=== PATIENT | male | born 1955 ===

== ENCOUNTER → 2019-10-08 | Outpatient (CLI) | payer OTHER ==
[~2019-10-08] VITALS: Ht 167.6 cm; Wt 104.8 kg
[~2019-10-08] MED LIST: COZAAR 25 MG TA25 M2 PO; IBU800 MG PO; LIPITOR 20 MG T20 M1 PO
--- NOTE | ~2019-10-08 | HPC ---
[facility] [address] [address] PAIN MANAGEMENT CONSULTATION Name: FER STEVENS Room #: REG ASHLEIGH JiménezDexter#: [id number] Admission: 10/08/19 Attend Phys: Dwayne Goode MD Discharge: Date of : 57 Report #: [id number] THIS REPORT FOR: //name// CC: SARAH Goode DATE OF SERVICE: 10/08/2019 SUBJECTIVE: The patient is a very pleasant 63-year-old gentleman who presents today with severe spinal stenosis and lumbar radiculopathy. The pain has gotten so severe that it is difficult for him to stand or walk. He has pain both in his back, butt and his leg. The pain is most severe on the right. It follows an L5-S1 distribution. He had an MRI performed on 09/03/2019 and we reviewed this study. It shows an anterolisthesis of L4 on L5 causing severe neural foraminal narrowing and central stenosis. There is also spinal stenosis of a moderate degree at L3-L4. MEDICATIONS: Atorvastatin, losartan and ibuprofen. ALLERGIES: None. PAST MEDICAL HISTORY: Significant for hypertension. PAST SURGICAL HISTORY: None. SOCIAL HISTORY: Denies use of tobacco. Alcohol once or twice a week in a social setting. He denies any recreational drugs, no use of marijuana. He works as a software engineering supervisor. He was born in [place] and came to the [place] in 1970s to get his master's degree. PHYSICAL EXAMINATION: GENERAL: Pleasant gentleman who is morbidly obese. VITAL SIGNS: His blood pressure is 127/89, heart rate 97, respirations 16, O2 sat is 96. His BMI is 37.3. HEENT: Normal. NECK: Supple. CHEST: Clear to auscultation. CARDIAC: Rhythm is regular with no audible murmur. ABDOMEN: Soft. MUSCULOSKELETAL: Reveals normal alignment of the spine. His gait is mildly antalgic. Muscle mass appears to be symmetrical and equal and adequate bilaterally. He has pain with back extension, and feels comfort and relief with back flexion. He has some tenderness across his lumbosacral segment. Pain then radiates to the right, into the right L5-S1 distribution. He has some similar [facility] [address] [place] [address] PAIN MANAGEMENT CONSULTATION Name: FER STEVENS Room #: [facility].#: [id number] Admission: 10/08/19 Attend Phys: Dwayne Goode MD Discharge: Date of : 57 Report #: [id number] pain also on the left. Pain intensity is 8. Straight leg raising reproduces this pain on the right, but not the left. Deep tendon reflexes are diminished bilaterally at the knees and ankle. Sensation is intact to light touch. IMPRESSION: Severe cervical stenosis with radiculopathy. Anterolisthesis, L4 on L5. Neural foraminal narrowing. Lumbar radiculopathy. RECOMMENDATIONS: L4-L5 epidural injection under fluoroscopic guidance. The procedure was explained in some detail. I have also discussed the importance of physical therapy and I have referred him to [facility] on [address] for 6 visits. Hopefully, the pain relief that he achieves from the injection will be helpful in allowing to participate more actively in physical therapy. DESCRIPTION OF PROCEDURE: He was taken to the fluoroscopic suite, placed prone. The skin was prepped with ChloraPrep. Skin was anesthetized over the L4-L5 interspace to the right of midline. A 20-gauge Tuohy epidural needle was advanced on the first attempt in the epidural space with loss of resistance. There was no blood nor CSF aspirated. A 1 mL of Omnipaque was injected with good spread of dye observed in the epidural space. This was then followed by 3 mL of 0.5% lidocaine mixed with 80 mg of triamcinolone. He tolerated the procedure well, was observed for 45 minutes and discharged. Follow up as needed. By: [id number] Dwayne Goode MD /nt
[2019-10-08 10:16] VITALS: BP 127/89
--- NOTE | 2019-10-08 11:11 | NUR ---
Pain Clinic Assessment: 1. History of Osteoarthritis: * NONE History of Rheumatoid Arthritis: Not Applicable 2. Height: 5 ft. 6 in. 167.6 cm. Weight: 231.0 lb. oz. 104.781 kg. Patient's BMI: 37.3 3. Vital Signs: BP: 127/89 Pulse: 97 Resp: 16 Temp: 02 Sat: 96 ECG Mon: 4. Pain Intensity: 8 5. Fall Risk: Dizziness: N Needs help standing or walking: N Fallen in the last 3 months: N Fall risk comments: 6. Patient on Blood Thinner: None 7. History of Hypertension: Y 8. Opioid Therapy greater than 6 weeks: N Opiate Contract Signed: 9. Risk Assessment Tool Provided: 10. Functional Assessment Tool: 11. Recreational Drug Use: Never Drug Type: Tobacco Use: Never Smoker Tobacco Type: Amount or Packs/day: How Many Years: Alcohol Use: Yes Frequency: Weekly Quant: 1-2/WEEK
--- NOTE | 2019-10-08 12:10 | NUR ---
Pain Clinic Assessment: 1. History of Osteoarthritis: * NONE History of Rheumatoid Arthritis: Not Applicable 2. Height: 5 ft. 6 in. 167.6 cm. Weight: 231.0 lb. oz. 104.781 kg. Patient's BMI: 37.3 3. Vital Signs: BP: 127/89 Pulse: 97 Resp: 16 Temp: 02 Sat: 96 ECG Mon: 4. Pain Intensity: 8 5. Fall Risk: Dizziness: N Needs help standing or walking: N Fallen in the last 3 months: N Fall risk comments: 6. Patient on Blood Thinner: None 7. History of Hypertension: Y 8. Opioid Therapy greater than 6 weeks: N Opiate Contract Signed: 9. Risk Assessment Tool Provided: 0-LOW RISK 10. Functional Assessment Tool: 11. Recreational Drug Use: Never Drug Type: Tobacco Use: Never Smoker Tobacco Type: Amount or Packs/day: How Many Years: Alcohol Use: Yes Frequency: Weekly Quant: 1-2/WEEK
== END | disposition home or self-care (01) ==
LOC: PAIN 06:50
DX: M54.16 Radiculopathy, lumbar region (principal); M48.061 Spinal stenosis, lumbar region without neurogenic claudication; M43.16 Spondylolisthesis, lumbar region; G89.29 Other chronic pain; M48.02 Spinal stenosis, cervical region; M54.12 Radiculopathy, cervical region; E66.01 Morbid (severe) obesity due to excess calories; I10 Essential (primary) hypertension; Z98.890 Other specified postprocedural states; Z79.899 Other long term (current) drug therapy; Z68.37 Body mass index [BMI] 37.0-37.9, adult

== ENCOUNTER → 2019-11-08 | Outpatient (CLI) | payer OTHER ==
[~2019-11-08] VITALS: Ht 167.6 cm; Wt 102.2 kg
--- NOTE | ~2019-11-08 | HPC ---
[facility] [place] [address] PAIN MANAGEMENT CONSULTATION Name: FER STEVENS Room #: REG ASHLEIGH Cheryl#: [id number] Admission: 11/08/19 Attend Phys: Dwayne Goode MD Discharge: Date of : 57 Report #: [id number] THIS REPORT FOR: //name// CC: SARAH Goode DATE OF SERVICE: 11/08/2019 Followup visit for lumbar radiculopathy due to severe spinal stenosis, L4-L5. The patient returns today for a second epidural injection. He has about 45% improved and has been sustained since his last injection. Pain is in the same location primarily on the right albeit some pain on the left as well. Follows in L5-S1 distribution. I reviewed his MRI and his injection site. He has an anterolisthesis at L4-L5, which is grade 1 and there is severe spinal stenosis and neural foraminal narrowing at that level. There have been no significant changes in his physical exam or history, but the subjective complaints of pain have dramatically reduced. IMPRESSION: Severe central stenosis with anterolisthesis at L4-L5. Neural foraminal narrowing at L4-L5 with lumbar radiculopathy. RECOMMENDATION: L4-L5 epidural under fluoroscopic guidance. DESCRIPTION OF PROCEDURE: He was taken to fluoroscopic suite for treatment, placed prone, skin prepped with ChloraPrep. Skin anesthetized over the L4-L5 interspace. A 20-gauge Tuohy epidural needle was advanced in first attempt in the epidural space with loss of resistance. There was no blood nor CSF aspirated. A 1 mL of Omnipaque injected. Good spread of dye observed into the epidural space followed by 3 mL of 0.5% lidocaine mixed with 80 mg of triamcinolone. He tolerated the procedure well. There were no complications. Followup visit planned on an as needed basis. We will try to forego any more injections at this time and we will see him at perhaps 3-4 months if needed for repeat injection. By: [id number] Dwayne Goode MD /nt
[2019-11-08 15:09] VITALS: BP 147/93
--- NOTE | 2019-11-08 15:15 | NUR ---
Pain Clinic Assessment: 1. History of Osteoarthritis: * NONE History of Rheumatoid Arthritis: Not Applicable 2. Height: 5 ft. 6 in. 167.6 cm. Weight: 225.2 lb. oz. 102.150 kg. Patient's BMI: 36.4 3. Vital Signs: BP: 147/93 Pulse: 82 Resp: 18 Temp: 02 Sat: 95 ECG Mon: 4. Pain Intensity: 4-5 5. Fall Risk: Dizziness: N Needs help standing or walking: N Fallen in the last 3 months: N Fall risk comments: 6. Patient on Blood Thinner: None 7. History of Hypertension: Y 8. Opioid Therapy greater than 6 weeks: N Opiate Contract Signed: 9. Risk Assessment Tool Provided: 0-LOW RISK 10. Functional Assessment Tool: 11. Recreational Drug Use: Never Drug Type: Tobacco Use: Never Smoker Tobacco Type: Amount or Packs/day: How Many Years: Alcohol Use: Yes Frequency: Quant:
== END | disposition home or self-care (01) ==
LOC: PAIN 06:51
DX: M48.061 Spinal stenosis, lumbar region without neurogenic claudication (principal); M54.16 Radiculopathy, lumbar region; G89.29 Other chronic pain; M43.16 Spondylolisthesis, lumbar region; Z98.890 Other specified postprocedural states; Z79.899 Other long term (current) drug therapy

== ENCOUNTER → 2020-05-19 | Outpatient (CLI) | payer OTHER ==
[~2020-05-19] VITALS: Ht 167.6 cm; Wt 105.6 kg
[~2020-05-19] MED LIST changes: +GABAPENTIN100 MG PO
--- NOTE | ~2020-05-19 | HPC ---
[facility] [place] [address] PAIN MANAGEMENT CONSULTATION Name: FER STEVENS Room #: REG ASHLEIGH JiménezDexter#: [id number] Admission: 05/19/20 Attend Phys: Dwayne Goode MD Discharge: Date of : 57 Report #: [id number] THIS REPORT FOR: cc: Jaden Mcclelland II, MD, II,Jaden Goode,Dwayne Michel MD ~ CC: Jaden Goode DATE OF SERVICE: 05/19/2020 Followup visit for lumbar radiculopathy due to severe spinal stenosis at L4-L5. I last saw the patient in October, at which time he received a second epidural injection. He has had good response to his injections, particularly the first. The second was somewhat helpful. We reviewed his x-ray findings, although I do not have the films. I have read the report and he and I discussed it at some length. Options for treatment would include surgical options and he has been referred to get consultation from Dr. Alves and also from Dr. Mendez who is now practicing at [facility]. I told him that he should determine whether surgical treatments may be something he would be interested in. He has a single level. From my spot films during his epidural injections, I do not believe his spondylolisthesis is severe. He might be able to get by without effusion. He has trefoil stenosis. Symptoms are primarily below the level of the stenotic lesion involving L5 and A1 down the posterolateral aspect of the legs as far as the knee. Pain is worse with standing and walking, right worse than left. He is better when he is leaning forward using a cart which makes anatomical sense. He is not currently taking pain medication, but I have suggested that he might try gabapentin in addition to his epidural injection today. He is doing some exercises and rides a stationary bicycle. He tried physical therapy, but did not feel that it was beneficial for him. On PQRS he denies any other osteoarthritic joints or arthropathy. His BMI is 37.6 and we have discussed weight and obesity as contributors to chronic back pain. To the extent that he can lose weight it would be in his benefit. His blood pressure is 134/89, heart rate 82, respirations 16, O2 sat 99. He scores his pain as a 7/10 today. He has not had any falls and does not need help walking or standing, does not use a cane. He is on no blood thinners, but is treated for hypertension. Primary care physician's medications reviewed and reconciled. He does not take opioids, has completed an opioid risk tool, however, his score is 0 suggesting low risk for addiction should he require medication to aid with his pain at any point in time. Denies use of tobacco, drinks alcohol once or twice a week in a [facility] [address] [place] [address] PAIN MANAGEMENT CONSULTATION Name: FER STEVENS Room #: REG ASHLEIGH Cheryl#: [id number] Admission: 05/19/20 Attend Phys: Dwayne Goode MD Discharge: Date of : 57 Report #: [id number] social setting. PHYSICAL EXAMINATION: He moves independently from sitting to standing position. His gait is antalgic. He has positive straight leg raising test that is mostly on the right, reproducing pain down into the posterolateral aspect of the leg. He has quite a bit of muscle tension. Sensation is intact. No weakness. IMPRESSION: Low back pain with radiculopathy secondary to severe bilateral facet arthropathy, ligamentum flavum hypertrophy and bulging of the disk creating moderate to severe central stenosis and moderate right and mild left neural foraminal stenosis at L4-L5. RECOMMENDATION: Epidural injection today L4-L5 under fluoroscopic guidance. PROCEDURE NOTE DESCRIPTION OF PROCEDURE: He was taken to the fluoroscopic suite for procedure, placed prone, skin prepped with ChloraPrep. Skin anesthetized over the L4-L5. A 20-gauge Tuohy epidural needle advanced first attempt in the epidural space with loss of resistance. There was no blood or CSF aspirated. A 1 mL of Omnipaque injected. Good spread of dye was observed into the epidural space, followed by 3 mL of 0.5% lidocaine mixed with 80 mg of triamcinolone. He tolerated the procedure well and was observed for a short time and discharged. There were no complications. Followup visit planned in the pain clinic on an as needed basis. I did order for him gabapentin 100 mg #90, 1-3 tablets daily. By: [id number] Dwayne Goode MD /nt
[2020-05-19 09:20] VITALS: BP 134/89
--- NOTE | 2020-05-19 09:42 | NUR ---
Pain Clinic Assessment: 1. History of Osteoarthritis: * na History of Rheumatoid Arthritis: Not Applicable 2. Height: 5 ft. 6 in. 167.6 cm. Weight: 232.8 lb. oz. 105.598 kg. Patient's BMI: 37.6 3. Vital Signs: BP: 134/89 Pulse: 82 Resp: 16 Temp: 02 Sat: 99 ECG Mon: 4. Pain Intensity: 7 5. Fall Risk: Dizziness: N Needs help standing or walking: N Fallen in the last 3 months: N Fall risk comments: 6. Patient on Blood Thinner: None 7. History of Hypertension: Y 8. Opioid Therapy greater than 6 weeks: N Opiate Contract Signed: 9. Risk Assessment Tool Provided: 0-LOW RISK 10. Functional Assessment Tool: 55/70 11. Recreational Drug Use: Never Drug Type: Tobacco Use: Never Smoker Tobacco Type: Amount or Packs/day: How Many Years: Alcohol Use: Yes Frequency: Weekly Quant: 1-2/week
== END | disposition home or self-care (01) ==
LOC: PAIN 07:04
PROVIDERS: ATTEND Anesthesiology Pain Medicine
DX: M48.061 Spinal stenosis, lumbar region without neurogenic claudication (principal); M51.26 Other intervertebral disc displacement, lumbar region; M47.26 Other spondylosis with radiculopathy, lumbar region; G89.29 Other chronic pain; I10 Essential (primary) hypertension; Z98.890 Other specified postprocedural states; Z79.899 Other long term (current) drug therapy

== ENCOUNTER → 2020-09-29 | Outpatient (CLI) | payer OTHER ==
[~2020-09-29] VITALS: Ht 167.6 cm; Wt 105.7 kg
[2020-09-29 11:20] VITALS: BP 156/87
--- NOTE | 2020-09-29 11:28 | NUR ---
Pain Clinic Assessment: 1. History of Osteoarthritis: Not Applicable History of Rheumatoid Arthritis: Not Applicable 2. Height: 5 ft. 6 in. 167.6 cm. Weight: 233.0 lb. oz. 105.688 kg. Patient's BMI: 37.6 3. Vital Signs: BP: 156/87 Pulse: 93 Resp: 18 Temp: 02 Sat: 99 ECG Mon: 4. Pain Intensity: 8 5. Fall Risk: Dizziness: N Needs help standing or walking: N Fallen in the last 3 months: N Fall risk comments: 6. Patient on Blood Thinner: None 7. History of Hypertension: Y 8. Opioid Therapy greater than 6 weeks: N Opiate Contract Signed: 9. Risk Assessment Tool Provided: 0-LOW RISK 10. Functional Assessment Tool: 53/70 11. Recreational Drug Use: Never Drug Type: Tobacco Use: Never Smoker Tobacco Type: Amount or Packs/day: How Many Years: Alcohol Use: Yes Frequency: Monthly Quant: 2
== END | disposition home or self-care (01) ==
LOC: PAIN 06:47
PROVIDERS: ATTEND Anesthesiology Pain Medicine
DX: M54.16 Radiculopathy, lumbar region (principal); M48.061 Spinal stenosis, lumbar region without neurogenic claudication; G89.29 Other chronic pain; I10 Essential (primary) hypertension; Z98.890 Other specified postprocedural states; Z79.899 Other long term (current) drug therapy